=== PATIENT | male | born 1960 | race American Indian/Alaskan Native ===

== ENCOUNTER 2020-09-18 07:16 | Emergency (ER) | payer SELFPAY ==
[2020-09-18 07:46] VITALS: BP 119/78
[2020-09-18] MEDS ORDERED: KETOROLAC 30 MG/1 ML INJ IM ONE (09:42)
--- NOTE | 2020-09-18 09:46 | Emergency Department Report ---
ED Back Pain/Injury HPI - General Chief Complaint: Medical Clearance Stated Complaint: LEG PAIN Time Seen by Provider: 09/18/20 09:40 Source: patient Limitations: No Limitations - History of Present Illness Initial Comments: The patient was evaluated in the emergency department for symptoms described in the history of present illness. He/she was evaluated in the context of the global COVID-19 pandemic, which necessitated consideration that the patient might be at risk for infection with the virus that causes COVID-19. Institutional protocols and algorithms that pertain to the evaluation of patients at risk for COVID-19 are in a state of rapid change based on information released by regulatory bodies including the CDC and federal and state organizations. These policies and algorithms were followed during the patient's care in the emergency department. Please note that these policies, procedures and recommendations changed on a rapid basis. Patient is a 60-year-old male that presents emergency room with complaints of lower back pain. Patient states been going on for 8 months. Patient states the pain has worsened. Patient denies recent fall. Patient denies loss of control of bowel or bladder. Patient denies fever and chills. Patient denies chest pain. Patient denies dysuria. Patient denies shortness of breath. Patient states his pain is 10 out of 10. Patient states pain is worse with movement. Patient states the pain is better with rest. Patient states the pain starts in his lower back and radiates down both legs. Patient reports he does not have a primary care provider or orthopedist provider. Patient reports that he was seen here yesterday given a post pain prescription but was not able to walk to the pharmacist to get it. Patient states that he is waiting for ride to pick him up. Complaint: back pain Similar Symptoms Previously: Yes Severity: severe Quality: burning, sharp Consistency: constant Improves With: none Worsens With: walking Associated Symptoms: denies other symptoms - Related Data Allergies Allergy/AdvReac Type Severity Reaction Status Date / Time No Known Allergies Allergy Unverified 09/18/20 07:43 ED Review of Systems ROS: Stated complaint: LEG PAIN Other details as noted in HPI Comment: All other systems reviewed and negative ED Past Medical Hx - Past Medical History Previous Medical History?: No - Surgical History Past Surgical History?: No ED Physical Exam - General Limitations: No Limitations General appearance: alert, in no apparent distress - Head Head exam: Present: atraumatic, normocephalic - Eye Eye exam: Present: normal appearance - ENT ENT exam: Present: mucous membranes moist - Neurological Exam Neurological exam: Present: alert, oriented X3 - Psychiatric Psychiatric exam: Present: normal affect, normal mood - Skin Skin exam: Present: warm, dry, intact, normal color. Absent: rash ED Course Vital Signs 09/18/20 09/18/20 07:45 07:47 Temperature 95.9 F L Pulse Rate 49 L Respiratory 18 Rate Blood Pressure 119/78 O2 Sat by Pulse 99 Oximetry ED Medical Decision Making - Medical Decision Making Patient is a 60-year-old male that presents emergency room with complaints of lower back pain. Patient states been going on for 8 months. Patient states the pain has worsened. Patient denies recent fall. Patient denies loss of control of bowel or bladder. Patient denies fever and chills. Patient denies chest pain. Patient denies dysuria. Patient denies shortness of breath. Patient states his pain is 10 out of 10. Patient states pain is worse with movement. Patient states the pain is better with rest. Patient states the pain starts in his lower back and radiates down both legs. Patient reports he does not have a primary care provider or orthopedist provider. Patient reports that he was seen here yesterday given a post pain prescription but was not able to walk to the pharmacist to get it. Patient states that he is waiting for ride to pick him up. Patient given a Toradol injection of 30 mg. Discussed with patient he can filled his prescription for his pain medication that was given to him yesterday. Patient will be referred to a primary care provider and orthopedic provider. Critical care attestation.: If time is entered above; I have spent that time in minutes in the direct care of this critically ill patient, excluding procedure time. ED Disposition Clinical Impression: Back pain Qualifiers: Back pain laterality: bilateral Sciatica presence: with sciatica Sciatica laterality: bilateral sciatica Sciatica Qualifiers: Laterality: bilateral Qualified Code(s): M54.31 - Sciatica, right side; M54.32 - Sciatica, left side Disposition: TO HOME OR SELFCARE Is pt being admited?: No Does the pt Need Aspirin: No Condition: Stable Instructions: Lumbar Radiculopathy (ED) Additional Instructions: Please fill your prescription that was given to you yesterday. Follow-up with your primary care provider and or a orthopedic provider. Referrals: [facility] [Provider Group] - 3-5 Days ELDA RUGGIERO MD [Staff Physician] - 3-5 Days
== END 2020-09-18 11:16 | disposition home or self-care (01) ==
LOC: ED 07:16
DX: M54.31 Sciatica, right side (principal); M54.32 Sciatica, left side; M54.5 Low back pain
CPT/HCPCS: 96372; 99282; J1885